=== PATIENT | male | born 1985 | race Caucasian/White ===

== ENCOUNTER 2018-10-19 14:48 | Emergency (ER) | payer MEDICARE, MEDICAID, SELFPAY ==
[2018-10-19 14:51] VITALS: BP 125/76; PULSE 86; RESP 16; TEMP 36.9; O2SAT 98; BMI 22.3
--- NOTE | 2018-10-19 14:52 | ED_ITS ---
HPI - Extremity Injury (Upper) <VALERIE Frederick - Last Filed: 10/19/18 21:45> General Chief Complaint: Wound/Laceration Stated Complaint: laceration to ring finger left hand Time Seen by Provider: 10/19/18 14:52 Source: patient Mode of arrival: ambulatory Limitations: no limitations History of Present Illness HPI narrative: Healthy 33-year-old male that is a nonsmoker here for complaint of pain into his left ring finger. He states that he accidentally cut his left ring finger 2 days ago with a knife over the dorsal aspect of his PIP joint. He states he splinted it with a home splint and wrapped with duct tape. He has been wearing the splint for the last couple of days. He reports increased pain into the area today with movement of the left ring finger. He denies any bleeding. He does not know his last tetanus. He does report having some swelling to that area of the finger. No other concerns or complaints. Related Data Allergies Allergy/AdvReac Type Severity Reaction Status Date / Time Penicillins Allergy Verified 10/19/18 15:03 Review of Systems <VALERIE rFederick - Last Filed: 10/19/18 21:45> Constitutional Denies chills, Denies fever(s), Denies lethargy and Denies weakness Eyes Denies change in vision, Denies eye discharge, Denies irritation and Denies loss of vision ENT Ears, Nose, Mouth, and Throat: Denies change in voice, Denies neck pain and Denies sore throat Cardiovascular Denies chest pain, Denies irregular heart rhythm, Denies lightheadedness, Denies palpitations, Denies dyspnea, Denies dyspnea on exertion and Denies orthopnea Respiratory Denies cough, Denies dyspnea, Denies dyspnea on exertion and Denies wheezing Gastrointestinal Gastrointestinal: Denies abdominal pain, Denies change in bowel habits, Denies diarrhea, Denies nausea and Denies vomiting Genitourinary Denies hematuria, Denies flank pain, Denies urinary incontinence and Denies urinary urgency Musculoskeletal Denies neck pain Comments: Pain to left ring finger with slight swelling after laceration to days Integumentary/Breasts Denies pruritus, Denies erythema, Denies rash and Denies wounds Neurologic Denies confusion, Denies loss of vision and Denies weakness Psychiatric Denies anxiety, Denies confusion, Denies depression, Denies homicidal ideation and Denies suicidal ideation Endocrine Denies palpitations Hematologic/Lymphatic Denies easy bruising Allergic/Immunologic Denies wheezing Exam <VALERIE Frederick - Last Filed: 10/19/18 21:45> Initial Vital Signs Initial Vital Signs: Vital Signs Temperature 98.5 F 10/19/18 14:51 Pulse Rate 86 10/19/18 14:51 Respiratory Rate 16 10/19/18 14:51 Blood Pressure 125/76 10/19/18 14:51 Pulse Oximetry 98 10/19/18 14:51 Const General: cooperative and well developed Nutritional Appearance: well nourished Orientation: alert, awake, oriented x3 and not confused [facility] Mouth: oral mucosae normal and moist mucous membranes Eyes Conjunctivae: conjunctivae normal Sclera: sclerae normal Pupils: PERRL EOM: EOM intact bilaterally Resp Effort & Inspection: normal respiratory effort, able to speak in complete sentences, no respiratory distress and no use of accessory muscles Auscultation: clear to auscultation bilaterally, no rales, no rhonchi and no wheezes Cardio Rate: regular rate Rhythm: regular rhythm Heart Sounds: no click, no gallops, no murmurs and no rubs Pulses: normal peripheral pulses Skin General: no rashes or lesions noted, No jaundice and No petechiae Neuro General: alert, oriented x3, gait normal and no focal motor deficits Speech: speech normal Extrem Other: 1.5 cm laceration/puncture to the left ring finger at the dorsal aspect over the PIP joint. No erythema. No fluctuance no induration. Distal sensation is intact. Distal cap refill less than 2 sec. Patient does have full range of motion although is pain with motion. Slight amount ecchymosis to the PIP area. <Micheline Vásquez MD - Last Filed: 10/26/18 00:02> Initial Vital Signs Initial Vital Signs: Vital Signs Temperature 98.5 F 10/19/18 14:51 Pulse Rate 86 10/19/18 14:51 Respiratory Rate 16 10/19/18 14:51 Blood Pressure 125/76 10/19/18 14:51 Pulse Oximetry 98 10/19/18 14:51 Course <VALERIE Frederick - Last Filed: 10/19/18 21:45> Orders Ordered: Discontinued Medications Diphtheria/Tetanus/Acell Pertussis (Adacel) 0.5 ml IM .ONCE ONE Stop: 10/19/18 15:40 Last Admin: 10/19/18 15:52 Dose: 0.5 ml Vital Signs - 8 hr 10/19/18 14:51 10/19/18 16:28 Temperature 98.5 F Pulse Rate 86 80 Respiratory Rate 16 16 Blood Pressure 125/76 Blood Pressure [Left Arm] 106/70 Pulse Oximetry 98 100 <Micheline Vásquez MD - Last Filed: 10/26/18 00:02> Orders Ordered: Discontinued Medications Diphtheria/Tetanus/Acell Pertussis (Adacel) 0.5 ml IM .ONCE ONE Stop: 10/19/18 15:40 Last Admin: 10/19/18 15:52 Dose: 0.5 ml Vital Signs - 8 hr 10/19/18 14:51 10/19/18 16:28 Temperature 98.5 F Pulse Rate 86 80 Respiratory Rate 16 16 Blood Pressure 125/76 Blood Pressure [Left Arm] 106/70 Pulse Oximetry 98 100 MDM - Extremity Injury (Upper) <VALERIE Frederick - Last Filed: 10/19/18 21:45> Imaging Data Left finger : Radiologist's impression: [address] [place] [id number] XRay Report Signed Patient: William Earl AMR#: [id number] : 1985Acct:[id number] Age/Sex: 33 / MDate of Service: 10/19/18 Loc: ED Accession Number: [id number] Procedure: XR finger LT min 2V Ordering Provider: William Rutledge PROCEDURE: XR FINGER LT MIN 2V INDICATIONS: Pain into left ring finger TECHNIQUE: AP hand, 2 views of the fourth finger(s) acquired. COMPARISON: None. FINDINGS: Bones: No fractures or dislocations. No suspicious bony lesions. Soft tissues: No suspicious soft tissue calcifications. IMPRESSION: No visualized acute fracture or dislocation. However, if clinical concern and/or pain persist, short interval imaging followup in 7-10 days is recommended , as occult injury cannot be definitively excluded. Dictated by: Kathleen Santiago M.D. on 10/19/2018 at 16:16 Approved by: Kathleen Santiago M.D. on 10/19/2018 at 16:16 [facility] Narrative Medical decision making narrative: X-ray of the left fingers was obtained was negative for any acute fractures or findings. Do not appreciate signs and symptoms of infection at this time. Wound appears to be healing well. Slight amount of ecchymosis at the finger area most likely is causing his pain. Patient does not have a primary care provider so referred Orthopedics in case he has continued problems he may need advanced imaging in further evaluation. Use [id number] Tylenol or Motrin as needed for any discomfort. For any worsening symptoms return emergency room. Tetanus was updated the emergency room today. Discharge Plan Departure Patient Disposition: Home Clinical Impression: Laceration of left ring finger Discharge Date/Time: 10/19/18 16:45 Interventions: ED Discharge Assessment Last Done: 10/19/18 16:45 Instructions: DI for Minor Laceration Activity Restrictions/Additional Instructions: X-ray was obtained of the left fingers and was negative for any acute fractures or dislocations. Slight amount of bruising is seen into the injury area and may be causing the discomfort that she were having now. Use [id number] Tylenol Motrin as needed for any discomfort. Ice and elevation help with any swelling. If still having discomfort next week call Orthopedics at number provided to schedule follow-up appointment. For any worsening symptoms return to the emergency room. Tetanus was updated in the emergency room today. Referrals: Mathew Cast MD [Physician] -
--- NOTE | 2018-10-19 15:39 | DI.RAD.S_ITS ---
PROCEDURE: XR FINGER LT MIN 2V INDICATIONS: Pain into left ring finger TECHNIQUE: AP hand, 2 views of the fourth finger(s) acquired. COMPARISON: None. FINDINGS: Bones: No fractures or dislocations. No suspicious bony lesions. Soft tissues: No suspicious soft tissue calcifications. IMPRESSION: No visualized acute fracture or dislocation. However, if clinical concern and/or pain persist, short interval imaging followup in 7-10 days is recommended, as occult injury cannot be definitively excluded. Dictated by: Kathleen Santiago M.D. on 10/19/2018 at 16:16 Approved by: Kathleen Santiago M.D. on 10/19/2018 at 16:16
[2018-10-19] MEDS: TET,DIPH,PERTUSS(ACELL),VAC/PF 0.5 ML SYRINGE IM (15:52)
[2018-10-19 16:28] VITALS: BP 106/70; PULSE 80; RESP 16; O2SAT 100
--- NOTE | 2018-10-19 16:42 | PC.NURSE ---
cleaned with hibiclens, dried, bacitracin ointment applied with bandaid.
== END 2018-10-19 16:45 | disposition home or self-care (01) ==
PROVIDERS: Emergency Provider Nurse Practitioner Family
DX: S61.215A Laceration without foreign body of left ring finger without damage to nail, initial encounter (principal); W26.0XXA Contact with knife, initial encounter
CPT/HCPCS: 73140; 90471; 99283; 90715

== ENCOUNTER → 2018-12-04 10:35 | Outpatient (CLI) | payer MEDICARE, MEDICAID, SELFPAY ==
--- NOTE | 2018-12-04 10:48 | DI.MRI.S_ITS ---
PROCEDURE: MR HAND LT WO CON INDICATIONS: LACERATION to fourth digit TECHNIQUE: Noncontrast coronal T1 spin echo and T2 fast spin echo with fat saturation, axial proton density fast spin echo and T2 fast spin echo with fat saturation, sagittal T1 spin echo and STIR through the hand and fingers. COMPARISON: [facility], CR, XR FINGER LT MIN 2V, 10/19/2018, 15:51. FINDINGS: Image quality: Excellent. Bones: The bones are normally aligned, without marrow contusions or fractures. No intra-osseous lesions. Interphalangeal joint(s): The accessory and proper collateral ligaments appear intact. The volar plate demonstrates normal morphology. The extensor central slips appear intact on sagittal images. Metacarpophalangeal joint(s): The accessory and proper collateral ligaments appear intact, as well as the volar plate and adjacent deep transverse metacarpal ligaments. The sagittal bands of the extensor valencia appear normal. Extensor apparatus: The central slips insert normally on the middle phalangeal base. The conjoint and terminal tendons insert normally on the distal phalangeal bases. More proximal portions of the extensor tendons also appear normal. Flexor apparatus: The flexor digitorum superficialis and profundus tendons both appear intact. All annular and cruciform pulleys appear intact, without adjacent soft tissue edema. Soft tissues: Visualized muscles demonstrate normal bulk and internal signal. No intramuscular masses identified. No ganglion cysts. IMPRESSION: 1. No marrow edema. No fracture or dislocation. 2. Extensor and flexor tendons of left hand are grossly intact. Dictated by: Yehuda Lawson M.D. on 12/06/2018 at 15:01 Approved by: Yehuda Lawson M.D. on 12/06/2018 at 15:13
== END ==
PROVIDERS: Visit Provider Physician Assistant Surgical
DX: S61.215A Laceration without foreign body of left ring finger without damage to nail, initial encounter (principal)
CPT/HCPCS: 73218

== ENCOUNTER → 2019-03-24 10:57 | Outpatient (CLI) | payer MEDICARE, MEDICAID, SELFPAY ==
--- NOTE | 2019-04-12 15:10 | PM.CARDMON.1 ---
Sustainability Project Coordinator Report Referral & Results Date Patient Seen: 03/24/19 Requesting provider: Tish De Los Santos Duration of monitoring (days): 8 Diary information: There are no patient diary entries There 3 patient triggered events associated sinus rhythm and PACs Data: Minimum heart rate was 40 beats per minute at 23:07 on 03/27/2019 Maximum overall heart rate was 175 beats per minute at 18:51 on 03/25/2019 Less than 1% of identified beats or either ventricular supraventricular in origin Patient with some nonspecific atrial dysrhythmia that the computer called SVT but does not appear to be that as it was only 5 beats in duration at a rate of 111 beats per minute Impression: Essentially normal compliance monitor as above
--- NOTE | 2019-04-12 15:13 | P.HOLT.S_ITS ---
Supervisor Slitting And Shipping Report Referral & Results Date Patient Seen: 03/24/19 Requesting provider: Tish De Los Santos Duration of monitoring (days): 8 Diary information: There are no patient diary entries There 3 patient triggered events associated sinus rhythm and PACs Data: Minimum heart rate was 40 beats per minute at 23:07 on 03/27/2019 Maximum overall heart rate was 175 beats per minute at 18:51 on 03/25/2019 Less than 1% of identified beats or either ventricular supraventricular in origin Patient with some nonspecific atrial dysrhythmia that the computer called SVT but does not appear to be that as it was only 5 beats in duration at a rate of 111 beats per minute Impression: Essentially normal manager renewable energy as above
== END ==
PROVIDERS: Visit Provider Nurse Practitioner Family
DX: Q24.9 Congenital malformation of heart, unspecified (principal)
CPT/HCPCS: 0296T; 0298T

== ENCOUNTER → 2019-03-30 06:01 | Outpatient (CLI) | payer MEDICARE, MEDICAID, SELFPAY ==
--- NOTE | 2019-03-30 06:04 | DI.ECHO.S_ITS ---
[place] [facility] +---------+ : : [address] : : : : [id number] : : : : Phone: [phone] Echocardiogram Report + + :Name: LOS SHETTY Study Date: 03/30/2019 Height: 64 in : :[facility] Exam Location: IS Weight: 124 lb : : Gender: Male BSA: 1.6 m2 : :: 1985 Age: 33 yrs BP: 100/70 mmHg: :Reason For Study: Arrhythmia/ Cardiac abnormality : : Performed By: Maria M Page : :Referring: ANITRA VELASQUEZ : + + Interpretation Summary The ejection fraction is estimated to be 50-55%. There is systolic anterior motion of the chordal apparatus. Redundant chordae There is trace mitral regurgitation. The right ventricular systolic pressure is estimated to be at least 20 mmHg based on an estimated right atrial pressure of 8 mm Hg. Procedure: A two-dimensional transthoracic echocardiogram with color flow and Doppler was performed. The study quality was technically good. Comparison is made with the echocardiogram of 06/09/2014. The patient was in normal sinus rhythm during the exam. Left Ventricle: The left ventricle is normal in size, wall thickness, and systolic function without any focal wall motion abnormalities. The ejection fraction is estimated to be 50-55%. Left ventricular wall motion is normal. Diastolic parameters suggest probable normal left ventricular diastolic function and normal filling pressures. Right Ventricle: The right ventricle is normal in size and function. Atria: Both atria are moderately dilated. There is no Doppler evidence for an interatrial shunt. Mitral Valve: There is systolic anterior motion of the chordal apparatus. Redundant chordae. There is trace mitral regurgitation. Aortic Valve: The aortic valve is trileaflet. The aortic valve opens well. There is trace aortic regurgitation. Tricuspid Valve: The tricuspid valve is normal in structure and function. There is trace tricuspid regurgitation. The right ventricular systolic pressure is estimated to be at least 20 mmHg based on an estimated right atrial pressure of 8 mm Hg. Pulmonic Valve: The pulmonic valve is not well seen, but is grossly normal. There is trace pulmonic regurgitation. Great Vessels: The aortic root is normal size. The ascending aorta is normal in size. The pulmonary artery is not well visualized, but is probably normal size. The IVC is dilated (diameter is greater than 2.1 cm) yet it collapses greater than 50% with a sniff. This suggests a right atrial pressure of 8 mm Hg. Pericardium/ Pleura There is no pericardial effusion. There is no pleural effusion. MMode/2D Measurements & Calculations LVIDd: 5.4 cm LVOT diam: 2.4 cm LVIDs: 3.9 cm Ao root diam: 3.3 cm FS: 28.3 % asc Aorta Diam: 2.9 cm EPSS: 0.23 cm IVSd: 0.54 cm LVPWd: 0.68 cm LV velez. diameter/BSA (cm/m^2): 3.4 LV sys. diameter/BSA (cm/m^2): 2.4 LA A2 area: 20.2 cm2 RA long axis: 4.9 cm LA A4 area: 18.2 cm2 RA area: 20.2 cm2 LA length (vol): 4.3 cm RA vol: 70.3 ml LA vol: 72.7 ml RA : 44.0 ml/m2 LA vol index: 45.5 ml/m2 IVC diam: 2.2 cm RVD1 (basal): 4.2 cm RVD2 (mid): 3.0 cm TAPSE: 2.8 cm Doppler Measurements & Calculations Ao V2 max: 96.3 cm/sec LVOT Max Elton: 81.6 cm/sec Ao V2 mean: 70.6 cm/sec LV V1 max P.7 mmHg Ao max P.7 mmHg LV V1 VTI: 16.1 cm Ao mean P.1 mmHg NAPOLEON(I,D): 3.8 cm2 Ao V2 VTI: 19.6 cm NAPOLEON(V,D): 3.9 cm2 sev ratio: 0.82 NAPOLEON indexed to BSA (cm^2/m^2): 2.4 MV E max elton: 70.7 cm/sec TR max elton: 175.9 cm/sec MV A max elton: 58.0 cm/sec TR max P.4 mmHg MV E/A: 1.2 PA V2 max: 77.6 cm/sec Med Peak E' Elton: 7.6 cm/sec PA V2 mean: 54.7 cm/sec E/E' med: 9.3 PA mean P.4 mmHg Lat Peak E' Elton: 11.1 cm/sec PA Accel Time: 0.17 sec E/E' lat: 6.3 E/e' average: 7.8 MV dec time: 0.19 sec MV P1/2t: 56.7 msec MV P1/2t max elton: 71.6 cm/sec SV(LVOT): 74.5 ml MVA(P1/2t): 3.9 cm2 Reading Physician:03:24 PM
== END ==
PROVIDERS: Visit Provider Nurse Practitioner Family
DX: Q24.9 Congenital malformation of heart, unspecified (principal); I49.9 Cardiac arrhythmia, unspecified
CPT/HCPCS: 93306

== ENCOUNTER → 2019-03-31 11:21 | Outpatient (CLI) | payer MEDICARE, MEDICAID, SELFPAY ==
[2019-03-31 12:00] LABS: Hematocrit 45.8 % (41-53); Hemoglobin 15.6 g/dL (13.5-17.5); Mean Corpuscular HGB Conc 34.1 % (30-36); Mean Corpuscular Hemoglobin 28.8 PG (26-34); Mean Corpuscular Volume 84.6 fL (80-100); Platelet Count 234 X10^3/uL (150-400); Red Blood Cell Count 5.42 X10^6/uL (4.5-5.9); Red Cell Distribution Width 13.8 % (11.6-14.8); White Blood Cell Count 5.7 X10^3/uL (4.5-11.0)
[2019-03-31 12:22] LABS: Alanine Aminotransferase 15 IU/L (21-72); Albumin 4.8 g/dL (3.5-5.0); Albumin Globulin Ratio 1.6 (1.0-2.8); Alkaline Phosphatase 53 U/L (38-126); Aspartate Aminotransferase 17 IU/L (17-59); BUN Creatinine Ratio 16.3 (6-22); Bilirubin Total 0.5 mg/dL (0.2-1.3); Blood Urea Nitrogen 13 mg/dL (9-20); Calcium 10.2 mg/dL (8.4-10.2); Carbon Dioxide 30 mmol/L (22-32); Chloride 101 mmol/L (98-107); Estimated Glomerular Filt Rate > 60.0 mL/min (>60); Glucose 116 mg/dL (70-100); HEMOLYSIS < 15 (0-50); Potassium 4.4 mmol/L (3.4-5.1); Sodium 141 mmol/L (137-145); Total Protein 7.8 g/dL (6.3-8.2)
[2019-03-31 12:57] LABS: TSH w/ Reflex to FT4 1.71 uIU/mL (0.47-4.68)
== END ==
PROVIDERS: Visit Provider Nurse Practitioner Family
DX: Q24.9 Congenital malformation of heart, unspecified (principal)
CPT/HCPCS: 36415; 80053; 84443; 85027